=== PATIENT | male | born 1945 | race Caucasian/White ===

== ENCOUNTER 2017-05-31 23:52 | Emergency (ER) | payer MEDICARE, OTHER ==
[~2017-05-31] VITALS: Ht 177.8 cm; Wt 117.9 kg
[2017-06-01 00:05] VITALS: BP 176/95
[2017-06-01 00:59] LABS: BASO % 1 % (0-3); EOS % 1 % (0-3); HEMATOCRIT 42.1 % (39.0-53.0); HEMOGLOBIN 14.2 g/dL (13.0-17.5); LYMPH # 0.8 x10^3/uL (1.0-4.8); LYMPH % 10 % (24-48); MEAN CORPUSCULAR HEMOGLOBIN 30 pg (25-35); MEAN CORPUSCULAR HGB CONC 34 g/dL (31-37); MEAN CORPUSCULAR VOLUME 88 fL (79-100); MONO % 8 % (0-9); NEUT % 82 % (31-73); PLATELET COUNT 208 x10^3/uL (140-400); RED BLOOD COUNT 4.77 x10^6/uL (4.30-5.70); RED CELL DISTRIBUTION WIDTH 13.8 % (11.5-14.5); WHITE BLOOD COUNT 8.1 x10^3/uL (4.0-11.0)
[2017-06-01] MEDS ORDERED: fentaNYL PF VIAL 100 MCG/2 ML VIAL IV ONE ×2 (01:00→02:30)
[2017-06-01] MEDS ORDERED: ONDANSETRON PF 4 MG/2 ML VIAL. IV ONE ×2 (01:00→02:30)
[2017-06-01 01:08] LABS: CALCIUM 9.5 mg/dL (8.5-10.1); CREATININE 1.1 mg/dL (0.7-1.3); GFR 66.4
[2017-06-01 01:14] LABS: ALBUMIN 3.8 g/dL (3.4-5.0); TOTAL BILIRUBIN 0.5 mg/dL (0.2-1.0); TOTAL PROTEIN 7.8 g/dL (6.4-8.2)
--- NOTE | 2017-06-01 01:23 | RAD ---
CT ABDOMEN PELVIS WO CONTRAST dated 06/01/2017 12:52 AM Indication: Right flank pain.right flank pain. Comparison: No comparison is available. Technique: Contiguous axial imaging the abdomen and pelvis performed without the administration of IV or oral contrast. One or more of the following individualized dose reduction techniques were utilized for this examination: 1. Automated exposure control 2. Adjustment of the mA and/or kV according to patient size 3. Use of iterative reconstruction technique Findings: Limited images of lung bases show patchy and linear opacity in the right middle lobe. Is also linear scar or atelectasis in the left lower lobe. A noncalcified pulmonary nodule in left lower lobe on image 30 measures 8 mm, although this could partially be related to mucous plugging. Mild diffuse bronchial wall thickening. Calcified granuloma right lower lobe. Diffuse low-density of the liver compatible with fatty infiltration. No apparent mass. Biliary tree normal in caliber. Gallbladder surgically absent. Spleen, pancreas, adrenal glands unremarkable. 3 mm calcific stone at the distal right ureter with mild proximal hydroureter and mild hydronephrosis. Inflammatory stranding in the right perinephric fat. 9 mm calcific stone at a lower pole calyx on the right. No left sided stone or hydronephrosis. Solid abdominal viscera not well evaluated in the absence of contrast material. No apparent attenuation abnormality of the liver or spleen. Appendix normal in caliber. There are a few scattered diverticula throughout the colon. No ascites or lymphadenopathy. Images of pelvis a nondistended urinary bladder. Prostate gland mildly enlarged. No free pelvic fluid or pelvic lymphadenopathy. Bone windows show no acute findings. Mild multilevel spondylosis. IMPRESSION: 1. 3.0 mm calcific stone at the distal right ureter with mild obstructive uropathy. 2. Right-sided nephrolithiasis. 3. Diverticulosis with no evidence of acute diverticulitis. 4. Normal appendix. 5. Noncalcified pulmonary nodule in the left lower lobe measuring 8 mm, nonspecific. Follow-up imaging in 6 months recommended to ensure stability. Electronically signed by: Lalo Wilkerson MD (06/01/2017 1:19 AM) [facility]
--- NOTE | 2017-06-01 01:56 | PHYS DOC ---
Past Medical History Past Medical History: Diabetes-Type II, High Cholesterol, Hypertension Past Surgical History: Cholecystectomy, Knee Replacement Alcohol Use: Rarely Drug Use: None Adult General Chief Complaint Chief Complaint: FLANK PAIN HPI HPI Patient is a 71 year old male who presents with right flank pain. it has been intermittant today. he had a kidney stone about 3-4 years ago that he passed on his own. he had recent URI sx and has been on doxy for about 1 week. he feels he is healing from that. he has had diarrhea 2-3 days now Review of Systems Review of Systems Constitutional: Denies fever or chills [] Eyes: Denies change in visual acuity, redness, or eye pain [] HENT: Denies nasal congestion or sore throat [] Respiratory: Denies cough or shortness of breath [] Cardiovascular: No additional information not addressed in HPI [] GI:+abdominal pain, nausea, NO vomiting, bloody stools or diarrhea [] : Denies dysuria or hematuria [] Musculoskeletal: Denies back pain or joint pain [] Integument: Denies rash or skin lesions [] Neurologic: Denies headache, focal weakness or sensory changes [] Endocrine: Denies polyuria or polydipsia [] Current Medications Current Medications Current Medications Medications (Trade) Dose Ordered Sig/[facility] Start Time Stop Time Status Last Admin Dose Admin Fentanyl Citrate (Fentanyl 2ml Vial) 50 mcg 1X ONCE 06/01/17 01:00 06/01/17 01:01 DC 06/01/17 01:17 50 MCG Ondansetron HCl (Zofran) 4 mg 1X ONCE 06/01/17 01:00 06/01/17 01:01 DC 06/01/17 01:17 4 MG Allergies Allergies Allergies Uncoded Allergies Type Severity Reaction Last Updated Verified BETA BLOCKERS Allergy Unknown 06/01/17 Physical Exam Physical Exam Constitutional: Well developed, well nourished, no acute distress, non-toxic appearance. [] HENT: Normocephalic, atraumatic, bilateral external ears normal, oropharynx moist, no oral exudates, nose normal. [] Eyes: PERRLA, EOMI, conjunctiva normal, no discharge. [] Neck: Normal range of motion, no tenderness, supple, no stridor. [] Cardiovascular:Heart rate regular rhythm, no murmur [] Lungs & Thorax: Bilateral breath sounds clear to auscultation [] Abdomen: Bowel sounds normal, soft, no tenderness, no masses, no pulsatile masses. NO reproducible flank pain Skin: Warm, dry, no erythema, no rash. [] Back: No tenderness, no CVA tenderness. [] Extremities: No tenderness, no cyanosis, no clubbing, ROM intact, no edema. [] Neurologic: Alert and oriented X 3, normal motor function, normal sensory function, no focal deficits noted. [] Psychologic: Affect normal, judgement normal, mood normal. [] Current Patient Data Vital Signs Vital Signs Date Time Temp Pulse Resp B/P (MAP) Pulse Ox O2 Delivery O2 Flow Rate FiO2 06/01/17 00:05 96.2 73 18 176/95 (122) 96 Room Air 96.2 Lab Values Laboratory Tests Test 06/01/17 00:45 White Blood Count 8.1 x10^3/uL (4.0-11.0) Red Blood Count 4.77 x10^6/uL (4.30-5.70) Hemoglobin 14.2 g/dL (13.0-17.5) Hematocrit 42.1 % (39.0-53.0) Mean Corpuscular Volume 88 fL (79-100) Mean Corpuscular Hemoglobin 30 pg (25-35) Mean Corpuscular Hemoglobin Concent 34 g/dL (31-37) Red Cell Distribution Width 13.8 % (11.5-14.5) Platelet Count 208 x10^3/uL (140-400) Neutrophils (%) (Auto) 82 % (31-73) H Lymphocytes (%) (Auto) 10 % (24-48) L Monocytes (%) (Auto) 8 % (0-9) Eosinophils (%) (Auto) 1 % (0-3) Basophils (%) (Auto) 1 % (0-3) Neutrophils # (Auto) 6.6 x10^3uL (1.8-7.7) Lymphocytes # (Auto) 0.8 x10^3/uL (1.0-4.8) L Monocytes # (Auto) 0.6 x10^3/uL (0.0-1.1) Eosinophils # (Auto) 0.0 x10^3/uL (0.0-0.7) Basophils # (Auto) 0.0 x10^3/uL (0.0-0.2) Sodium Level 139 mmol/L (136-145) Potassium Level 4.0 mmol/L (3.5-5.1) Chloride Level 100 mmol/L (98-107) Carbon Dioxide Level 30 mmol/L (21-32) Anion Gap 9 (6-14) Blood Urea Nitrogen 21 mg/dL (8-26) Creatinine 1.1 mg/dL (0.7-1.3) Estimated GFR (Cockcroft-Gault) 66.4 BUN/Creatinine Ratio 19 (6-20) Glucose Level 228 mg/dL (70-99) H Calcium Level 9.5 mg/dL (8.5-10.1) Total Bilirubin 0.5 mg/dL (0.2-1.0) Aspartate Amino Transferase (AST) 18 U/L (15-37) Alanine Aminotransferase (ALT) 40 U/L (16-63) Alkaline Phosphatase 56 U/L (46-116) Total Protein 7.8 g/dL (6.4-8.2) Albumin 3.8 g/dL (3.4-5.0) Albumin/Globulin Ratio 1.0 (1.0-1.7) Laboratory Tests 06/01/17 00:45 Laboratory Tests 06/01/17 00:45 EKG EKG [] Radiology/Procedures Radiology/Procedures 3mm stone in right UVJ[] Course & Med Decision Making Course & Med Decision Making Pertinent Labs and Imaging studies reviewed. (See chart for details) flomax and oxy. will f/u pcp as needed Dragon Disclaimer Dragon Disclaimer This electronic medical record was generated, in whole or in part, using a voice recognition dictation system. Departure Departure Disposition: 01 HOME, SELF-CARE Condition: GOOD Referrals: VIMAL FOURNIER (PCP) Patient Instructions: Kidney Stones Additional Instructions: flomax to help stone pass. oxycodone for pain. return if any symptoms worsen. Scripts Oxycodone/Apap 7.5-325 (PERCOCET 7.5-325 MG TABLET) 1 Each Tablet 1 TAB PO Q4-6HRS Y for prn, #20 TAB Prov: BARBER MEDINA MD 06/01/17 Tamsulosin Hcl (FLOMAX) 0.4 Mg Cap.er.24h 1 CAP PO DAILY, #14 CAP 11 Refills Prov: BARBER MEDINA MD 06/01/17 BARBER MEDINA MD Jun 01, 2017 01:56
[2017-06-01] MEDS ORDERED: TAMS0.4C97 PO (01:59)
[2017-06-01] MEDS ORDERED: OXYC-327 PO (01:59)
[2017-06-01] MEDS ORDERED: ONDA4TAB10 SL (02:14)
== END 2017-06-01 02:56 | disposition home or self-care (01) ==
LOC: ER 23:52
DX: N20.1 Calculus of ureter (principal); E78.00 Pure hypercholesterolemia, unspecified; E11.9 Type 2 diabetes mellitus without complications; I10 Essential (primary) hypertension; Z87.442 Personal history of urinary calculi; Z88.8 Allergy status to other drugs, medicaments and biological substances
CPT/HCPCS: 36415; 74176; 80053; 85025; 96374; 96375; 96376; 99285; J2405; J3010